=== PATIENT | male | born 1950 | race African-American/Black ===

== ENCOUNTER 2023-03-09 10:17 | Emergency (ER) | payer MEDICARE, OTHER ==
[~2023-03-09] VITALS: Ht 177.8 cm; Wt 80.0 kg
[2023-03-09 10:53] VITALS: BP 128/76; PULSE 88; RESP 16; TEMP 98.2; O2SAT 98
[2023-03-09] MEDS ORDERED: ACET-1080 PO (11:36)
[2023-03-09] MEDS ORDERED: METH-1182 PO (11:36)
== END 2023-03-09 11:54 | disposition home or self-care (01) ==
LOC: ER 10:17
DX: S16.1XXA Strain of muscle, fascia and tendon at neck level, initial encounter (principal); S39.012A Strain of muscle, fascia and tendon of lower back, initial encounter; M51.36 Other intervertebral disc degeneration, lumbar region; E11.9 Type 2 diabetes mellitus without complications; Z91.040 Latex allergy status; V49.88XA Car occupant (driver) (passenger) injured in other specified transport accidents, initial encounter; Y93.89 Activity, other specified; Y92.89 Other specified places as the place of occurrence of the external cause; Y99.8 Other external cause status
CPT/HCPCS: 72040; 72100